=== PATIENT | female | born 1965 | race Caucasian/White ===

== ENCOUNTER → 2020-04-18 | Outpatient (CLI) | payer OTHER | LOC: EDBD 08:23 → KOH-I 08:23 | DX: S93.492A Sprain of other ligament of left ankle, initial encounter (principal); R60.0 Localized edema; M65.871 Other synovitis and tenosynovitis, right ankle and foot | CPT/HCPCS: 73721 ==

== ENCOUNTER → 2020-07-07 | Outpatient (CLI) | payer OTHER | LOC: KOH-I 09:00 | DX: S92.351A Displaced fracture of fifth metatarsal bone, right foot, initial encounter for closed fracture (principal) | CPT/HCPCS: 73630 ==

== ENCOUNTER → 2020-07-21 | Outpatient (CLI) | payer OTHER | LOC: EMI 14:56 | DX: G57.61 Lesion of plantar nerve, right lower limb (principal) | CPT/HCPCS: 73720; A9577 ==

== ENCOUNTER → 2020-09-08 | Outpatient (CLI) | payer OTHER | LOC: KOH-I 14:20 | DX: S92.351A Displaced fracture of fifth metatarsal bone, right foot, initial encounter for closed fracture (principal); X58.XXXA Exposure to other specified factors, initial encounter | CPT/HCPCS: 73630 ==

== ENCOUNTER → 2021-07-09 | Outpatient (CLI) | payer OTHER | LOC: KOH-I 08:53 | DX: R10.9 Unspecified abdominal pain (principal) | CPT/HCPCS: 76775 ==